=== PATIENT | male | born 1995 | race Caucasian/White ===

== ENCOUNTER 2017-11-11 14:01 | Emergency (ER) | END 2017-11-11 15:42 | disposition home or self-care (01) ==

== ENCOUNTER 2017-11-13 09:06 | Emergency (ER) | END 2017-11-13 11:40 | disposition home or self-care (01) ==

== ENCOUNTER 2017-11-21 19:51 | Emergency (ER) | END 2017-11-21 20:40 | disposition home or self-care (01) ==

== ENCOUNTER 2018-02-06 18:04 | Emergency (ER) | END 2018-02-06 20:03 | disposition left against medical advice (07) ==